=== PATIENT | female | born 1950 | race Caucasian/White ===

== ENCOUNTER 2016-08-02 11:09 | Day surgery (SDC) | payer MEDICARE, OTHER ==
[~2016-08-02] VITALS: Ht 162.6 cm; Wt 85.0 kg
--- NOTE | 2016-08-02 07:33 | PCM.HPANE ---
Patient Data Surgeon Admitting Provider: Attending Provider:David Fernández MD Primary Care Physician:Ricki Other Provider:Sidney Coleman Anesthesia Reason for Visit History Of Colonic Polyps Ht/WT & BMI Body Mass Index Allergies Coded Allergies: codeine (Verified Allergy, Unknown, 08/01/16) methadone (Verified Allergy, Unknown, 08/01/16) Past Anesthesia History Anesthesia History: Denies:: Anesthesia Reactions (UNKNOWN) Diabetes History Hx Diabetes?: No MRSA MRSA: No Medications Reported Medications Tiotropium [place] (Spiriva)18 Mcg Cap.w.dev18 Mcg IH DAILY #1 PKG Ref 0 08/01/16 Albuterol Sulfate (Proair Respiclick)90 Mcg Aer.pow.ba90 Mcg IH QID PRN For Shortness of Breath 08/01/[address] 40 Mg Tablet.dr40 Mg PO DAILY Ref 0 08/01/16 Lovastatin 20 Mg Saikzw07 Mg PO HS #30 TABLET Ref 0 08/01/16 Lisinopril 20 Mg Omtkxs76 Mg PO DAILY 30 Days Ref 0 08/01/16 Hydrocodone-Acetaminophen 10-325 mg 1 Each Tablet1 Tablet PO Q6H PRN For Pain Ref 0 08/01/16 Fluticasone Propionate (Flonase Allergy Relief)50 Mcg/Actuation [place].susp9.9 Ml NS DAILY 08/01/16 Estradiol 0.5 Mg Tablet Daily 08/01/16 Carvedilol 6.25 Mg Tablet6.25 Mg PO BID Ref 0 08/01/16 Discontinued Reported Medications Benzonatate 200 Mg Wbhbksp673 Mg PO TID PRN For Cough 08/01/16 History History of ENT Problems?: No Hx of Heart Problems?: Yes Cardiovascular History: Positive for:: Hypertension Hx Neurologic Problems?: No Hx of GI Problems?: No Hx of Problems?: Yes Genitourinary History: Positive for:: Urinary Tract Infection Hx Musculoskeletal Problems?: Yes Musculoskeletal History: Positive for:: Back Injury (CHRONIC BACK AND NECK PAIN) Hx of Psycho/Social Problems?: Yes Psycho Social History: Positive for:: Hx Depression (RECENT DEPRESSION) Hx Surgeries?: Yes (HYSTERECTOMY, GALL STONES.) Other History: Denies:: Cancer Endocrine Disease Hospitalization Thyroid Disease History Blood Transfusions: Denies:: Blood Transfusions Hx Diabetes: No Hx Alcohol Use: Yes (RARE) Smoking Status: Current Every Day Smoker Have You Smoked inLast 12 mo: Yes Stop/Bang MARY ANN Risk Assessment: Low Risk, <3 Yes Risk Assessment Category Category 1A: Patient has history of documented sleep apnea, and HAS NOT received any narcotic, sedative or anesthesia administration during this stay. Category 1B: Patient has history of documented sleep apnea, and HAS received any narcotic , sedative or anesthesia administration during this stay Category 2: Patient has SUSPECTED Obstructive Sleep Apnea, and HAS received any narcotic , sedative or anesthesia administration during this stay. Category 3: Patient has SUSPECTED Obstructive Sleep Apnea and HAS NOT received narcotic, sedative or anesthesia administration during this stay. Category 4: Outpatient in Procedural Areas with known sleep apnea or who screen positive for High Risk via the STOP/BANG questionnaire. Exam Exam General Appearance: Alert, Oriented X3, Cooperative, No Acute Distress HEENT/AIRWAY: MP 2 Lungs: Clear to Auscultation, Normal Air Movement Heart: Exam Unremarkable, Regular Rate/Rhythm, No Murmurs/Rubs/Gallops Plan Impression Patient chart reviewed, patient interviewed and anesthestic plan with risks, benefits, and alternatives discussed, and informed consent obtained. ASA Physical Status: ASA3 Severe Disease Anesthetic Plan: MAC Bene/Risks/Altern/Consents: Yes HP Complete Prior to Induction: Yes Lito Sanders MD Aug 02, 2016 07:33
[~2016-08-02 11:09] MED LIST: ALBU90AE IH; BENZ200C44 PO; CARV6.252 PO; ESTR0.5T; FLUT9.9S NS; HYDR-3740 PO; LISI-567 PO; LOVA20TA PO; Lactated Ringer's 1,000 ML IV ONE; PANT40TA3 PO; TIOT18CA3 IH
[2016-08-02] MEDS ORDERED: fentaNYL-PF 50 mCg/mL 2 mL Inj ONE (11:10)
[2016-08-02] MEDS ORDERED: Propofol 10,000 mCg/mL 20 mL Inj ONE (11:10)
[2016-08-02 11:28] VITALS: BP 133/73; PULSE 94; RESP 17; O2SAT 94
[2016-08-02] MEDS ORDERED: Lactated Ringer's 1,000 ML IV SCH (12:58)
--- NOTE | 2016-08-02 12:58 | PCM.ANEP1 ---
Post Anesthesia Phase 1 PACU Phase 1 Assessment Vital Signs Vital Signs Date Time Temp Pulse Resp B/P Pulse Ox O2 Delivery O2 Flow Rate FiO2 08/02/16 11:28 36.4 94 17 133/73 94 Room Air Level of Alertness: Awake, talking JOSEPH's with Equal Strength: Yes Pain: No Nausea or Vomiting: No Oxygen Delivery: Nasal Cannula Lungs: Clear to Auscultation, Normal Air Movement Lito Sanders MD Aug 02, 2016 12:58
--- NOTE | 2016-08-02 12:58 | PCM.ANEP2 ---
Post Anesthesia Evaluation ASA/CMS Post Anesthesia VS in Patient's Normal Range?: Yes Resp Stable; Airway Patent?: Yes CV Function & Hydration Stable: Yes Mental Status Recovered?: Yes Pain control Satisfactory?: Yes N/V Control Satisfactory?: Yes Lito Sanders MD Aug 02, 2016 12:58
[2016-08-02] MEDS ORDERED: Ondansetron 2 mg/mL 2 mL Inj IVPUSH PRN (13:00)
[2016-08-02] MEDS ORDERED: MetoCLOpramide 5 mg/mL 2 mL Inj IVPUSH PRN (13:00)
[2016-08-02 13:01] VITALS: BP 100/66; PULSE 87; RESP 14; O2SAT 100
[2016-08-02 13:11] VITALS: BP 100/66; PULSE 87; RESP 14; O2SAT 97
[2016-08-02 13:19] VITALS: BP 140/84; PULSE 86; RESP 14; O2SAT 96
--- NOTE | 2016-08-02 16:24 | ENDO ---
[address] [address] ENDOSCOPY PROCEDURE PATIENT: JASKARAN PAYTON : 1950 MR#: [id number] ADMIT: 08/02/2016 JOB ID: [id number] DATE: 08/02/2016 PRIMARY CARE PHYSICIAN: Koki Parra PA-C PROCEDURE: Colonoscopy. EQUIPMENT: PCFH 190 mL. ANESTHESIA: Monitored anesthesia care was provided by Anesthesia personnel. Quality of preparation was fair. INDICATION: The patient is a 66-year-old female who reports a history of eight polyps on a colonoscopy five years ago. She was due for repeat colonoscopy. PROCEDURAL DETAILS: The patient was taken to the endoscopy suite and placed in the left lateral decubitus position. Monitored anesthesia care was provided per the anesthesiologist. Digital rectal examination was performed and unremarkable. The scope was then inserted and was advanced under direct visualization through to the cecum. The appendiceal orifice and the ileocecal valve were identified and photographed. The ileocecal valve was intubated and photographed. The terminal ileum appeared normal. The scope was then slowly withdrawn examining the mucosa for any defects and polyps. The quality of the prep was fair. No polyps were identified. No polyps were identified. There were pancolonic diverticula. Retroflexed views were attempted but unsuccessful in the rectum. The scope was then removed. ENDOSCOPIC FINDINGS: Diffuse diverticulosis. RECOMMENDATION: Repeat colonoscopy in five years given the history of colon polyps and the quality of the prep on today's examination. MASSIEL
== END 2016-08-02 23:59 | disposition home or self-care (01) ==
LOC: END 11:09
PROVIDERS: ATTEND General Practice
DX: Z86.010 Personal history of colon polyps (principal); Z12.11 Encounter for screening for malignant neoplasm of colon; K57.30 Diverticulosis of large intestine without perforation or abscess without bleeding; J44.9 Chronic obstructive pulmonary disease, unspecified; F17.210 Nicotine dependence, cigarettes, uncomplicated
CPT/HCPCS: G0105; J2250; J3010; J7120